=== PATIENT | male | born 1965 ===

== ENCOUNTER 2020-02-04 10:35 | Inpatient (IN) | payer OTHER ==
[~2020-02-04] VITALS: Ht 180.3 cm; Wt 95.3 kg
[2020-02-04] MEDS ORDERED: HUMULIN 70100 UNIT/2 SUBCUTANEO (10:58)
[2020-02-04] MEDS ORDERED: LOSARTAN-HCTZ1 EAC1 PO (10:59)
== END 2020-02-11 20:02 | disposition designated cancer center or children's hospital (05) | DRG 256 ==
LOC: ER 10:35 → SURH 19:15
PROVIDERS: Surgery; ADMIT Internal Medicine
PROC: B54CZZZ Ultrasonography of Left Lower Extremity Veins (ICD-10-PCS; 2020-02-04)
PROC: B54CZZZ Ultrasonography of Left Lower Extremity Veins (ICD-10-PCS; 2020-02-04)
PROC: 0QBP0ZZ Excision of Left Metatarsal, Open Approach (ICD-10-PCS; 2020-02-05)
PROC: 8E0ZXY6 Isolation (ICD-10-PCS; 2020-02-05)
PROC: 0Y6W0Z0 Detachment at Left 4th Toe, Complete, Open Approach (ICD-10-PCS; principal; 2020-02-05 14:45)
DX: E11.52 Type 2 diabetes mellitus with diabetic peripheral angiopathy with gangrene (principal); M86.172 Other acute osteomyelitis, left ankle and foot; N39.0 Urinary tract infection, site not specified; L97.528 Non-pressure chronic ulcer of other part of left foot with other specified severity; N17.9 Acute kidney failure, unspecified; E11.69 Type 2 diabetes mellitus with other specified complication; L03.032 Cellulitis of left toe; E11.65 Type 2 diabetes mellitus with hyperglycemia; E86.0 Dehydration; I12.9 Hypertensive chronic kidney disease with stage 1 through stage 4 chronic kidney disease, or unspecified chronic kidney disease; E11.22 Type 2 diabetes mellitus with diabetic chronic kidney disease; N18.9 Chronic kidney disease, unspecified; Z79.4 Long term (current) use of insulin; B95.4 Other streptococcus as the cause of diseases classified elsewhere; E11.621 Type 2 diabetes mellitus with foot ulcer; Z91.11 Patient's noncompliance with dietary regimen

== ENCOUNTER 2023-12-05 13:21 | Outpatient (CLI) | payer OTHER ==
[~2023-12-05 13:21] MED LIST: HUMULIN 70100 UNIT/2 SUBCUTANEO; LOSARTAN-HCTZ1 EAC1 PO
== END 2023-12-05 13:32 | disposition home or self-care (01) ==
LOC: MRI 13:21
PROVIDERS: ATTEND Surgery Vascular Surgery
DX: M86.171 Other acute osteomyelitis, right ankle and foot (principal)
CPT/HCPCS: 73721